=== PATIENT | female | born 1980 | race African-American/Black ===

== ENCOUNTER 2023-01-20 17:28 | Emergency (ER) | payer MEDICARE, MEDICAID ==
[~2023-01-20] VITALS: Ht 170.2 cm; Wt 75.9 kg
[2023-01-21 06:25] VITALS: BP 179/90
[2023-01-21] MEDS ORDERED: IBUPROFEN 400MG TAB PO ONE (06:45)
== END 2023-01-21 07:06 | disposition home or self-care (01) ==
LOC: M ED 17:28
DX: Z76.5 Malingerer [conscious simulation] (principal)